=== PATIENT | female | born 1985 | race Two or more races ===

== ENCOUNTER 2016-10-24 21:24 | Emergency (ER) | payer OTHER ==
[~2016-10-24] VITALS: Ht 170.2 cm; Wt 131.0 kg
[~2016-10-24 21:24] MED LIST: BUPR100T4 PO
[2016-10-24 21:35] VITALS: BP 122/79; PULSE 90; RESP 20; TEMP 98.1; O2SAT 96
[2016-10-24] MEDS ORDERED: IBUPROFEN 800 MG TAB PO ONE (23:15)
--- NOTE | 2016-10-24 23:15 | PD ---
HPI Chief Complaint: Musculoskeletal Complaint Time Seen by Provider: 23:06 Travel History International Travel<30 days: No Contact w/Intl Traveler<30days: No Traveled to known affect area: No History of Present Illness HPI 31-year-old female presents to the emergency department by private transportation for complaint of knee pain with intermittent knee swelling since December 2015 status post non-syncopal slip and fall. Patient states that she has had intermittent swelling of the knee since that time. Patient states that she is very active with repetitive walking standing kneeling or bending and squatting as she has to small children and works a full-time job. Patient states intermittently she has been using ibuprofen with some symptom relief. Patient reports that because of complaining of her knee her family has encouraged her to come to the hospital to be evaluated. Patient's had no new change with the knee or change in her recurrent effusion. Patient's had no fever no chills no erythema no increased warmth no recent injury and is not diabetic. Patient denies other concerns or complaints. Patient states that she is able to extend and bend her knee but at and range of motion of her knee because of the swelling of the knee makes her knee felt tight so she does not like to bend her knee completely. Patient denies other concerns or complaints. Pain at times can be as severe as 9/10 in intensity. PFSH Past Medical History Narrative Medical Anemia anxiety depression gastric bypass right oophorectomy positive alcohol use positive tobacco use; nursing notes reviewed Anemia: Yes Anxiety: Yes Depression: Yes Diminished Hearing: No Reproductive: Yes (CHLAMIDIA 2011 TREATED WITH ANTIBIOTICS) Immunizations Current: Yes Tetanus Vaccination: < 5 Years Influenza Vaccination: No ?: Unknown LMP: 6 2 17 : 3 Para: 2 Miscarriage: 1 Past Surgical History Abdominal Surgery: Yes (GASTRIC BYPASS 2006) Other Surgery: Yes (RT OVARY REMOVED) Social History Alcohol Use: Yes (OCC ) Tobacco Use: Yes (3 CIGS DAY) Substance Use: No Allergies-Medications (Allergen,Severity, Reaction): Coded Allergies: No Known Allergies (Verified , 10/24/16) Reported Meds & Prescriptions Reported Meds & Active Scripts Active Bupropion HCl 100 Mg Tab 100 Mg PO Q8HR Review of Systems Except as stated in HPI: all other systems reviewed are Neg General / Constitutional: No: Fever, Chills HENT: No: Congestion Cardiovascular: No: Chest Pain or Discomfort Respiratory: No: Shortness of Breath Gastrointestinal: No: Abdominal Pain Genitourinary: No: Flank Pain Musculoskeletal: Positive: Limited ROM, Pain (right knee secondary to effusion right knee), No: Myalgias, Arthralgias Skin: No Rash Neurologic: No: Weakness Psychiatric: No: Anxiety Hematologic/Lymphatic: No: Lymph Node Enlargement Physical Exam Narrative GENERAL: Well-developed well-nourished female in no acute distress no respiratory distress SKIN: Warm and dry. CARDIOVASCULAR: Regular rate and rhythm without murmurs, gallops, or rubs. RESPIRATORY: Breath sounds equal bilaterally. No accessory muscle use. MUSCULOSKELETAL: No cyanosis, or edema. Right knee ballotable non-tense effusion without increased warmth or redness of the knee patient is able to fluids lately extend and bend the knee although at end range of motion of knee flexion does note some discomfort secondary to effusion. Distally extremity is neurovascular tendon intact with 2+ dorsalis pedis pulse and capillary refill is brisk and less than 2 seconds. There is no ascending erythema. Patient is able to weight-bear and ambulate without antalgic gait. BACK: Nontender without obvious deformity. No CVA tenderness. Data Data Last Documented VS Vital Signs Date Time Temp Pulse Resp B/P Pulse Ox O2 Delivery O2 Flow Rate FiO2 10/24/16 21:35 98.1 90 20 122/79 96 Orders ^ Knee Immobilizer (10/24/16 23:06) Splint Or Brace Apply/Monitor (10/24/16 23:06) MDM Medical Decision Making Medical Screen Exam Complete: Yes Emergency Medical Condition: Yes Medical Record Reviewed: Yes Differential Diagnosis Sprain strain internal derangement; exam is not consistent with septic arthritis Narrative Course Patient provided with weight-based ibuprofen 800 mg times one dose and knee immobilizer; patient encouraged to follow-up with her primary care provider and may need to be referred to orthopedist or have outpatient MRI at later date if does not respond to conservative management. Patient has artery had plain film imaging which revealed no acute bony abnormality and small effusion. Diagnosis Primary Impression: Effusion, right knee Referrals: Orthopedist as needed Primary Care Physician call for appointment Patient Instructions: General Instructions Additional Instructions: May use ibuprofen/Advil/Motrin every 6-8 hours as needed for pain associated with inflammation; may take high-dose ibuprofen 600 mg as often as every 6 hours or up to 800 mg as often as every 8 hours; avoid high-dose ibuprofen for greater than 2-3 days May use acetaminophen/Tylenol every 4-6 hours as needed for minor pain or for fever 100.4F or greater Wear knee immobilizer or supportive elastic brace to right knee Follow-up with primary care provider or as needed orthopedist Return to the emergency department for any concerns or change in condition Disposition: 01 DISCHARGE HOME Condition: Stable Ca Moore MD Oct 24, 2016 23:15
== END 2016-10-24 23:41 | disposition home or self-care (01) ==
LOC: PHED 21:24
DX: M25.461 Effusion, right knee (principal)
CPT/HCPCS: 29505; 99282; L1830

== ENCOUNTER 2017-07-11 08:31 | Emergency (ER) | payer OTHER ==
[~2017-07-11] VITALS: Ht 175.3 cm; Wt 128.0 kg
[2017-07-11 08:32] VITALS: BP 149/90; PULSE 91; RESP 16; TEMP 98.5; O2SAT 98
--- NOTE | 2017-07-11 09:19 | PD ---
HPI Chief Complaint: Injury Time Seen by Provider: 08:59 Travel History International Travel<30 days: No Contact w/Intl Traveler<30days: No Traveled to known affect area: No History of Present Illness HPI This patient complains of right knee pain. She fell onto 8 months ago and developed an effusion. Since that time it's never been normal. She has pain and swelling with it. She's tried conservative measures without success. She follow with her family physician. She says an orthopedic referral was not improved. No new injury today. Denies fever. Symptoms severity is moderate PFSH Past Medical History Anemia: Yes Anxiety: Yes Depression: Yes Diminished Hearing: No Reproductive: Yes (Chlamydia ) Immunizations Current: Yes Tetanus Vaccination: < 5 Years Influenza Vaccination: No ?: Not LMP: 05/18/17 ([place]) : 3 Para: 2 Miscarriage: 1 Tubal Ligation: Yes Past Surgical History Abdominal Surgery: Yes (Gastric bypass ) Hysterectomy: Yes (Rt. ovary removed ) Other Surgery: Yes (RT OVARY REMOVED) Social History Alcohol Use: Yes (Occasional/social) Tobacco Use: Yes (/2 PPD) Substance Use: No Allergies-Medications (Allergen,Severity, Reaction): Coded Allergies: No Known Allergies (Verified Adverse Reaction, Unknown, 07/11/17) Reported Meds & Prescriptions Reported Meds & Active Scripts Active No Active Prescriptions or Reported Medications Review of Systems General / Constitutional: No: Fever HENT: No: Headaches Cardiovascular: No: Chest Pain or Discomfort Respiratory: No: Cough Physical Exam Narrative SKIN: Focused skin assessment reveals no rash or ulcers. Skin is warm and dry. Palpation shows no induration or nodules. Psych: Normal mood and affect. Normal insight and judgment. Right knee: Good range of motion . There is some tenderness lateral and superior to the patella. No erythema Data Data Last Documented VS Vital Signs Date Time Temp Pulse Resp B/P (MAP) Pulse Ox O2 Delivery O2 Flow Rate FiO2 07/11/17 08:32 98.5 91 16 149/90 [phone]) 98 MDM Medical Decision Making Medical Screen Exam Complete: Yes Emergency Medical Condition: Yes Medical Record Reviewed: Yes Differential Diagnosis Cartilage injury, effusion, ligament tear Narrative Course I have reviewed the patient's electronic medical record. We discussed options. She would like an MRI ordered. I've written an outpatient order for MRI of her right knee to be sent to her primary physician. Diagnosis Primary Impression: Chronic pain of right knee Additional Impression: Effusion, right knee Additional Instructions: The patient was advised to follow up with their physician and return if they worsen. Med/Other Pt SpecificInfo: Other Scripts No Active Prescriptions or Reported Meds Disposition: 01 DISCHARGE HOME Condition: Stable Mansoor Rodriguez MD Jul 11, 2017 09:19
== END 2017-07-11 09:26 | disposition home or self-care (01) ==
LOC: PHED 08:31
DX: M25.561 Pain in right knee (principal); G89.29 Other chronic pain; M25.461 Effusion, right knee; D64.9 Anemia, unspecified; F41.9 Anxiety disorder, unspecified; F32.9 Major depressive disorder, single episode, unspecified; F17.200 Nicotine dependence, unspecified, uncomplicated
CPT/HCPCS: 99281

== ENCOUNTER 2017-09-05 08:19 | Emergency (ER) | payer OTHER ==
[~2017-09-05] VITALS: Ht 170.2 cm; Wt 128.0 kg
[2017-09-05 08:21] VITALS: BP 128/74; PULSE 74; RESP 16; TEMP 98.4; O2SAT 97
--- NOTE | 2017-09-05 09:19 | PD ---
HPI Chief Complaint: Musculoskeletal Complaint Time Seen by Provider: 09:01 Travel History International Travel<30 days: No Contact w/Intl Traveler<30days: No Traveled to known affect area: No History of Present Illness HPI 32-year-old female here with right knee pain for the last 3 months. She reports pain is constant aching, worse with weightbearing and range of motion. Slightly relieved with rest. She originally had a fall months ago and the knee has never been same since. She has had a negative x-ray. She was scheduled for an MRI but her insurance did not authorize the imaging. She denies swelling of the leg. No fever chills. Symptom severity is moderate. PFSH Past Medical History Anemia: Yes Anxiety: Yes Depression: Yes Diminished Hearing: No Reproductive: Yes (Chlamydia ) Immunizations Current: Yes ?: Not LMP: TUBAL LIGATION : 3 Para: 2 Miscarriage: 1 Tubal Ligation: Yes Past Surgical History Abdominal Surgery: Yes (Gastric bypass ) Hysterectomy: Yes (Rt. ovary removed ) Other Surgery: Yes (RT OVARY REMOVED) Social History Alcohol Use: Yes (Occasional/social) Tobacco Use: Yes (1/2 PPD) Substance Use: No Allergies-Medications (Allergen,Severity, Reaction): Coded Allergies: No Known Allergies (Verified Adverse Reaction, Unknown, 09/05/17) Reported Meds & Prescriptions Reported Meds & Active Scripts Active No Active Prescriptions or Reported Medications Review of Systems Except as stated in HPI: all other systems reviewed are Neg General / Constitutional: No: Fever Physical Exam Narrative GENERAL: Alert and well-appearing 32-year-old female SKIN: Warm and dry. HEAD: Normocephalic. EYES: No scleral icterus. No injection or drainage. NECK: Supple CARDIOVASCULAR: Regular rate and rhythm RESPIRATORY: Breath sounds equal bilaterally. No accessory muscle use. GASTROINTESTINAL: Abdomen soft, non-tender, nondistended. MUSCULOSKELETAL: No cyanosis, or edema. RLE: Tenderness to the anterior aspect of the knee. Small joint effusion. Joint is stable. No laxity. No calf tenderness or swelling. Palpable distal pulses. Normal sensation. Brisk cap refill. BACK: Nontender without obvious deformity. No CVA tenderness. Data Data Last Documented VS Vital Signs Date Time Temp Pulse Resp B/P (MAP) Pulse Ox O2 Delivery O2 Flow Rate FiO2 09/05/17 08:21 98.4 74 16 128/74 (92) 97 [facility] Medical Decision Making Medical Screen Exam Complete: Yes Emergency Medical Condition: Yes Differential Diagnosis Meniscal injury, arthritis, fracture unlikely Narrative Course 32-year-old female here with right knee pain for the last 8 months. No recent injury. extremities neurovascularly intact. During exam patient notified me that her primary care physician will see her at 950 today and arrange for MRI she is requesting discharge at this time. Diagnosis Primary Impression: Knee pain Qualified Codes: M25.561 - Pain in right knee Referrals: May Dailey MD Orthopedist Scripts No Active Prescriptions or Reported Meds Disposition: DISCHARGE HOME Condition: Stable Tracy Arthur Sep 05, 2017 09:19
== END 2017-09-05 09:33 | disposition home or self-care (01) ==
LOC: PHEFT 08:19
DX: M25.561 Pain in right knee (principal); F41.9 Anxiety disorder, unspecified; F32.9 Major depressive disorder, single episode, unspecified; F17.200 Nicotine dependence, unspecified, uncomplicated; Z98.84 Bariatric surgery status
CPT/HCPCS: 99281